=== PATIENT | female | born 1990 | race Caucasian/White ===

== ENCOUNTER 2017-07-12 16:31 | Emergency (ER) | payer BC ==
[2017-07-12 17:19] VITALS: BP 118/78
[2017-07-12] MEDS ORDERED: Acetaminophen TAB* 325 MG PO ONE (17:25)
--- NOTE | 2017-07-12 17:53 | UC ---
FLU HPI - HPI Summary HPI Summary: Pt presents with 3 days progressive body aches, sore throat, cough with yellow sputum, fever. 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 Pt has take OTC APAP and mucinex with mild relief. Pt reports painful swallowing + po No rash Pt's medications reviewed this visit - History of Current Complaint Chief Complaint: UCRespiratory Stated Complaint: FEVER,ACHY,COUGH Time Seen by Provider: 07/12/17 17:22 Hx Obtained From: Patient Hx Last Menstrual Period: 07/07/17 ?: No Onset/Duration: Gradual Onset Severity Currently: Mild Severity Initially: Moderate Pain Intensity: 4 Pain Scale Used: 0-10 Numeric Associated Signs & Symptoms: Positive: Fever, Myalgia, Cough, Sore Throat - Allergy/Home Medications Allergies/Adverse Reactions: Allergies Allergy/AdvReac Type Severity Reaction Status Date / Time latex Allergy Rash Verified 07/12/17 17:20 PMH/Surg Hx/FS Hx/Imm Hx Previously Healthy: Yes Other History Of: Negative For: HIV, Hepatitis B, Hepatitis C, Anticoagulant Therapy - Surgical History Surgical History: None - Family History Known Family History: Positive: Diabetes - Social History Occupation: Employed Full-time Lives: With Family Alcohol Use: Occasionally Substance Use Type: None Smoking Status (MU): Never Smoked Tobacco Have You Smoked in the Last Year: No Review of Systems Constitutional: Fever ENT: Nasal Discharge, Sinus Congestion Respiratory: Cough Neurovascular: Negative Musculoskeletal: Negative Neurological: Negative Psychological: Negative All Other Systems Reviewed And Are Negative: Yes Physical Exam Triage Information Reviewed: Yes Appearance: Well-Nourished, Other: - congested, tired appearing Vital Signs: Initial Vital Signs Temp 99.4 F 07/12/17 17:15 Pulse 105 07/12/17 17:15 Resp 16 07/12/17 17:15 BP 118/78 07/12/17 17:15 Pulse Ox 100 07/12/17 17:15 Vital Signs Reviewed: Yes Eye Exam: Normal Eyes: Positive: Conjunctiva Clear ENT: Positive: Hearing grossly normal, Pharynx normal, Nasal congestion, Other - fluid right ear mild erythema, turbinates inflammed + PND + exudate left tonsil uvula midline Dental Exam: Normal Neck exam: Normal Neck: Positive: 1 Respiratory: Positive: Other: - coarse cough no w/r + BS throughout Cardiovascular Exam: Normal Cardiovascular: Positive: RRR, No Murmur Abdominal Exam: Normal Abdomen Description: Positive: Nontender, No Organomegaly, Soft Musculoskeletal Exam: Normal Neurological Exam: Normal Psychological Exam: Normal Skin Exam: Normal Flu Course/Dx - Course Course Of Treatment: Pt presents with bodyaches, sinus congestion, productive cough, ear pain ad fevers x 3 days. Pt with + fluid in right ear and coarse cough. Flu neg, strep neg. tx supportive. pt trialed lidocaine wit + effect. will Rx lidcoaine. work note. will rx amox - pt will fill and take if sx persist or right ear progresses - Differential Dx/Diagnosis Provider Diagnoses: URI. viral syndrome. pharyngitis Discharge - Sign-Out/Discharge Documenting (check all that apply): Discharge - Discharge Plan Condition: Stable Disposition: HOME Prescriptions: Amoxicillin PO (*) [Amoxicillin 875 MG (*)] 875 mg PO BID #14 tab Benzonatate CAP* [Tessalon 100 MG CAP*] 100 mg PO TID PRN #15 cap PRN Reason: Cough Lidocaine 2% VISCOUS* [Xylocaine 2% Viscous*] 15 ml SWISH SPIT Q4H PRN #150 ml PRN Reason: Sore Throat Patient Education Materials: Viral Syndrome (ED) Forms: *Gen. Provider Communication, *Work Release Referrals: Serene RIOS,Mohan iRley [Primary Care Provider] - Additional Instructions: - Stay well hydrated. Drink plenty of non-alcoholic, non-caffinated beverages. - Alternate ibuprofen (Advil, Motrin) 600mg and Tylenol every 3 hours for pain or fever. Take with food. Do NOT take for more than 4-5 days. - These infections are spread by secretions - do NOT share eating or drinking utensils - clean items you share with other people such as cell phones, computer mouse, TV remote, computer tablets,etc. Once you start to feel better, change your toothbrush and your pillowcase. - get plenty of restful sleep - humidify the air in the room where you sleep - boil water, run a hot steam shower, vaporizer, cups of water by heat register - okay to take over the counter decongestant and cough medication. okay to take medication as prescribed for cough. - frequent sips of cold fluids will be soothing to your throat (popsicles, jello , ice cream, ice water). - get plenty of restful sleep. - if your symptoms persist, okay to start antibiotics as prescribe - contact your doctor or return with questions or concerns - Billing Disposition and Condition Condition: STABLE Disposition: HOME
[2017-07-12] MEDS ORDERED: Lidocaine 2% VISCOUS* 15 ML UDC PO ONE (18:05)
== END 2017-07-12 18:34 | disposition home or self-care (01) ==
LOC: UCCORT 16:31
DX: J06.9 Acute upper respiratory infection, unspecified (principal); B34.9 Viral infection, unspecified; J02.9 Acute pharyngitis, unspecified
CPT/HCPCS: 87502; 87651; 99212; A9270-GY; G0463

== ENCOUNTER 2018-05-04 10:13 | Emergency (ER) | payer BC ==
[2018-05-04 10:44] VITALS: BP 105/70
[2018-05-04 10:44] LABS: Influenza A Molecular POSITIVE (Negative)
--- NOTE | 2018-05-04 10:48 | UC ---
FLU HPI - HPI Summary HPI Summary: Pt presents with c/o sudden onset of POLO< generalized Malaise, fever, chills, X 3 days. Pt states she has a "syncopal conditions" Pt had 2-3 near syncopal episodes during triage and PE. - History of Current Complaint Chief Complaint: UCGeneralIllness Stated Complaint: COUGH/POLO/FEVER/ACHY/CHILLS Time Seen by Provider: 05/04/18 10:30 Hx Obtained From: Patient Hx Last Menstrual Period: 04/25/17 ?: No Onset/Duration: Sudden Onset, Lasting Days, Still Present Severity Currently: Mild Severity Initially: Moderate Pain Intensity: 6 Associated Signs & Symptoms: Positive: Fever, Myalgia, Cough, Nasal Congestion, Headache Related Hx: Possible Flu/Infectious Exposure - Risk Factors Influenza Risk Factors: Negative - Allergy/Home Medications Allergies/Adverse Reactions: Allergies Allergy/AdvReac Type Severity Reaction Status Date / Time latex Allergy Rash Verified 05/04/18 10:30 PMH/Surg Hx/FS Hx/Imm Hx Previously Healthy: Yes Other History Of: Negative For: HIV, Hepatitis B, Hepatitis C, Anticoagulant Therapy - Surgical History Surgical History: None - Family History Known Family History: Positive: Diabetes - Social History Occupation: Employed Full-time Lives: With Family Alcohol Use: Occasionally Substance Use Type: None Smoking Status (MU): Never Smoked Tobacco Have You Smoked in the Last Year: No - Immunization History Vaccination Up to Date: No Review of Systems All Other Systems Reviewed And Are Negative: Yes Constitutional: Positive: Fever, Chills, Fatigue Skin: Positive: Negative Eyes: Positive: Negative ENT: Positive: Sore Throat, Sinus Congestion Respiratory: Positive: Cough Cardiovascular: Positive: Negative Gastrointestinal: Positive: Negative Genitourinary: Positive: Negative Motor: Positive: Negative Neurovascular: Positive: Negative Musculoskeletal: Positive: Myalgia Neurological: Positive: Headache Psychological: Positive: Negative Is Patient Immunocompromised?: No Physical Exam Triage Information Reviewed: Yes Appearance: Ill-Appearing Vital Signs: Initial Vital Signs Temp 98.7 F 05/04/18 10:25 Pulse 83 05/04/18 10:25 Resp 16 05/04/18 10:25 BP 98/54 05/04/18 10:25 Pulse Ox 99 05/04/18 10:25 Vital Signs Reviewed: Yes Eye Exam: Normal ENT: Positive: Nasal congestion, Sinus tenderness Dental Exam: Normal Neck exam: Normal Respiratory Exam: Normal Cardiovascular Exam: Normal Musculoskeletal Exam: Normal Neurological Exam: Normal Psychological Exam: Normal Skin Exam: Normal Diagnostics - Laboratory Diagnostic Studies Completed/Ordered: rapid flu positive Flu Course/Dx - Differential Dx/Diagnosis Differential Diagnosis/HQI/PQRI: Influenza Provider Diagnosis: Influenza Discharge - Sign-Out/Discharge Documenting (check all that apply): Patient Departure All imaging exams completed and their final reports reviewed: No Studies - Discharge Plan Condition: Stable Disposition: HOME Patient Education Materials: Influenza (ED) Forms: *Work Release Referrals: [facility] [Outside] - If Needed No Primary Care Phys,NOPCP [Primary Care Provider] - - Billing Disposition and Condition Condition: STABLE Disposition: Home - Attestation Statements Provider Attestation: I was available for consult. This patient was seen by the AILEEN. The patient was not presented to, seen by, or examined by me. -Sebastien
== END 2018-05-04 10:54 | disposition home or self-care (01) ==
LOC: UCCORT 10:13
DX: J11.1 Influenza due to unidentified influenza virus with other respiratory manifestations (principal); R55 Syncope and collapse; Z91.040 Latex allergy status
CPT/HCPCS: 99211; G0463

== ENCOUNTER 2018-06-24 10:06 | Emergency (ER) | payer BC ==
[2018-06-24 10:17] VITALS: BP 126/77
--- NOTE | 2018-06-24 10:31 | UC ---
General HPI - HPI Summary HPI Summary: slipped on ice and fell striking her R foot on her car this am. c/o pain/swelling to top of R foot. - History of Current Complaint Chief Complaint: UCLowerExtremity Stated Complaint: RIGHT FOOT INJURY Time Seen by Provider: 06/24/18 10:13 Hx Obtained From: Patient Hx Last Menstrual Period: 05/26/18 Onset/Duration: Sudden Onset Timing: Constant Pain Intensity: 5 Associated Signs & Symptoms: Positive: Edema. Negative: Fever - Allergy/Home Medications Allergies/Adverse Reactions: Allergies Allergy/AdvReac Type Severity Reaction Status Date / Time latex Allergy Rash Verified 06/24/18 10:14 Home Medications: Home Medications Oral Contraceptive 1 tab PO DAILY 06/24/18 [History Confirmed 06/24/18] PMH/Surg Hx/FS Hx/Imm Hx Previously Healthy: Yes Other History Of: Negative For: HIV, Hepatitis B, Hepatitis C, Anticoagulant Therapy - Surgical History Surgical History: None - Family History Known Family History: Positive: Diabetes - Social History Alcohol Use: Occasionally Substance Use Type: None Smoking Status (MU): Never Smoked Tobacco Have You Smoked in the Last Year: No - Immunization History Vaccination Up to Date: No Review of Systems All Other Systems Reviewed And Are Negative: Yes Musculoskeletal: Positive: Edema - R foot Physical Exam Triage Information Reviewed: Yes Appearance: Well-Appearing Vital Signs: Initial Vital Signs Temp 98.1 F 06/24/18 10:14 Pulse 67 06/24/18 10:14 Resp 16 06/24/18 10:14 BP 126/77 06/24/18 10:14 Pulse Ox 100 06/24/18 10:14 Vital Signs Reviewed: Yes Eyes: Positive: Conjunctiva Clear ENT: Positive: Normal ENT inspection Respiratory: Positive: Lungs clear Cardiovascular: Positive: RRR Abdomen Description: Positive: Nontender Bowel Sounds: Positive: Present Musculoskeletal: Positive: Other: - R foot: dorsal swelling and tenderness. s/v/ m is intact rest of RLE is unremarkable. Neurological: Positive: Alert Psychological: Positive: Age Appropriate Behavior Skin Exam: Normal Diagnostics - Radiology No standard instances Radiology Interpretation Completed By: Radiologist - R foot=IMPRESSION: NO ACUTE OSSEOUS INJURY. IF SYMPTOMS PERSIST, RECOMMEND REPEAT IMAGING. Course/Dx - Course Course Of Treatment: pt declined any splinting - Diagnoses Provider Diagnosis: Contusion of right foot Discharge - Sign-Out/Discharge Documenting (check all that apply): Patient Departure All imaging exams completed and their final reports reviewed: Yes - Discharge Plan Condition: Stable Disposition: HOME Patient Education Materials: Foot Contusion (ED) Referrals: Mich Villa MD [Medical Doctor] - Additional Instructions: FOLLOW UP DR VILLA, ORTHOPEDICS IF NOT BETTER IN 5 DAYS OR SOONER IF WORSE. - Billing Disposition and Condition Condition: STABLE Disposition: Home
== END 2018-06-24 11:02 | disposition home or self-care (01) ==
LOC: UCCORT 10:06
DX: S90.31XA Contusion of right foot, initial encounter (principal); W18.49XA Other slipping, tripping and stumbling without falling, initial encounter; W22.8XXA Striking against or struck by other objects, initial encounter; Y92.9 Unspecified place or not applicable
CPT/HCPCS: 99211; G0463

== ENCOUNTER 2019-05-23 15:35 | Emergency (ER) | payer BC ==
[2019-05-23 16:27] VITALS: BP 120/77
--- NOTE | 2019-05-23 16:56 | UC ---
Skin Complaint HPI - HPI Summary HPI Summary: 29 yo female presents with rash to right arm. She tells me that for the last month she has had a red itchy rash to her right forearm. Has tried applying calamine lotion with no change. 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 Denies fever, chills, flu like symptoms, or change in perfumes/clothes/environment. - History of Current Complaint Chief Complaint: UCSkin Time Seen by Provider: 05/23/19 16:56 Stated Complaint: RASH Hx Obtained From: Patient Hx Last Menstrual Period: "about 3 weeks ago" Onset/Duration: Gradual Onset Current Severity: None Pain Intensity: 0 - Allergy/Home Medications Allergies/Adverse Reactions: Allergies Allergy/AdvReac Type Severity Reaction Status Date / Time latex Allergy Rash Verified 05/23/19 16:23 Home Medications: Home Medications Ethinyl Estradiol/Drospirenone [Lesa 3 mg-0.02 mg Tablet] 1 tab DAILY 05/23/19 [History Confirmed 05/23/19] PMH/Surg Hx/FS Hx/Imm Hx - Additional Past Medical History Additional PMH: None Other History Of: Negative For: HIV, Hepatitis B, Hepatitis C, Anticoagulant Therapy - Surgical History Surgical History: None - Family History Known Family History: Positive: Diabetes - Social History Occupation: Employed Full-time Lives: With Family Alcohol Use: Occasionally Substance Use Type: None Smoking Status (MU): Never Smoked Tobacco Have You Smoked in the Last Year: No - Immunization History Vaccination Up to Date: No Review of Systems All Other Systems Reviewed And Are Negative: No Constitutional: Positive: Negative Skin: Positive: Rash Eyes: Positive: Negative ENT: Positive: Negative Respiratory: Positive: Negative Cardiovascular: Positive: Negative Neurovascular: Positive: Negative Neurological/Mental Status: Positive: Negative Psychological: Positive: Negative Physical Exam - Summary Physical Exam Summary: GENERAL: NAD. WDWN. No pain distress. SKIN: RIGHT FOREARM: volar aspect with scattered scaley erythematous rash. Flat. NTTP. No warmth, open sores, or drainage. Linear and dry appearing. NECK: Supple. Nontender. No lymphadenopathy. CHEST: No accessory muscle use. Breathing comfortably and in no distress. CV: Pulses intact. Cap refill <2seconds NEURO: Alert. PSYCH: Age appropriate behavior. Triage Information Reviewed: Yes Vital Signs: Initial Vital Signs Temp 97.8 F 05/23/19 16:23 Pulse 73 05/23/19 16:23 Resp 16 05/23/19 16:23 BP 120/77 05/23/19 16:23 Pulse Ox 100 05/23/19 16:23 Vital Signs Reviewed: Yes Course/Dx - Course Course Of Treatment: Rash appears consistent with eczema vs tinea. Will treat as tinea as rash has not spread and was not responsive to lotions. Rx for clotrimazole and if this does not improve within 1 week to try kenalog cream. - Diagnoses Provider Diagnosis: Tinea Discharge ED - Sign-Out/Discharge Documenting (check all that apply): Patient Departure All imaging exams completed and their final reports reviewed: No Studies - Discharge Plan Condition: Stable Disposition: HOME Prescriptions: Clotrimazole 1% CREAM* [Clotrimazole 1%*] 1 applic TOPICAL BID #1 tube Triamcinolone 0.1% CREAM (NF) [Kenalog 0.1% Cream (NF)] 1 applic TOPICAL BID #1 tube Patient Education Materials: Tinea Corporis (ED), Dyshidrotic Eczema (ED) Referrals: No Primary Care Phys,NOPCP [Primary Care Provider] - Additional Instructions: If you develop a fever, shortness of breath, chest pain, new or worsening symptoms - please call your PCP or go to the ED immediately. The rash seems most consistent with a tinea (fungal) infection. Try the CLOTRIMAZOLE cream twice a day for 1 week and if the rash improves - continue to use this for 3 weeks total. If no change within 1 week - switch to the KENALOG steroid cream. - Billing Disposition and Condition Condition: STABLE Disposition: Home
== END 2019-05-23 17:20 | disposition home or self-care (01) ==
LOC: UCCORT 15:35
DX: B35.9 Dermatophytosis, unspecified (principal); Z91.040 Latex allergy status
CPT/HCPCS: 99212; G0463

== ENCOUNTER 2019-06-05 16:12 | Emergency (ER) | payer BC ==
[2019-06-05 17:06] VITALS: BP 112/78
[2019-06-05 17:24] LABS: Influenza A Molecular Negative (Negative); Influenza B Molecular Negative (Negative)
--- NOTE | 2019-06-05 17:52 | UC ---
FLU HPI - HPI Summary HPI Summary: 29yo female presenting with body aches, nausea, chills, and sore throat since this morning. Denies cough and nasal congestion. Denies known fevers. Denies vomiting and diarrhea. Taking otc cold medication for symptom relief. States was diagnosed yesterday with influenza and has same symptoms. - History of Current Complaint Chief Complaint: UCGeneralIllness Stated Complaint: HEADACHE/FATIGUE/SORE THROA/LIGHT HEADED Hx Obtained From: Patient Hx Last Menstrual Period: 05/13/19 Pain Intensity: 2 Pain Scale Used: 0-10 Numeric - Allergy/Home Medications Allergies/Adverse Reactions: Allergies Allergy/AdvReac Type Severity Reaction Status Date / Time latex Allergy Rash Verified 06/05/19 17:02 Home Medications: Home Medications Clotrimazole 1% CREAM* [Clotrimazole 1%*] 1 applic TOPICAL BID #1 tube 05/23/19 [Rx Confirmed 06/05/19] Ethinyl Estradiol/Drospirenone [Lesa 3 mg-0.02 mg Tablet] 1 tab DAILY 05/23/19 [History Confirmed 06/05/19] Triamcinolone 0.1% CREAM (NF) [Kenalog 0.1% Cream (NF)] 1 applic TOPICAL BID #1 tube 05/23/19 [Rx Confirmed 06/05/19] Oseltamivir CAP* [Tamiflu CAP*] 75 mg PO BID #10 cap 06/05/19 [Rx] PMH/Surg Hx/FS Hx/Imm Hx Other History Of: Negative For: HIV, Hepatitis B, Hepatitis C, Anticoagulant Therapy - Surgical History Surgical History: None - Family History Known Family History: Positive: Diabetes - Social History Alcohol Use: Occasionally Substance Use Type: None Smoking Status (MU): Never Smoked Tobacco Have You Smoked in the Last Year: No - Immunization History Vaccination Up to Date: No Review of Systems All Other Systems Reviewed And Are Negative: Yes Constitutional: Positive: Chills, Fatigue ENT: Positive: Sore Throat Respiratory: Positive: Negative Cardiovascular: Positive: Negative Gastrointestinal: Positive: Nausea. Negative: Abdominal Pain, Vomiting, Diarrhea Musculoskeletal: Positive: Myalgia Neurological/Mental Status: Positive: Negative Physical Exam - Summary Physical Exam Summary: Vital Signs Reviewed: Yes A+Ox3, no distress Eyes: Conjunctiva Clear ENT: Hearing grossly normal, TM x 2 clear, moist, uvula midline, no exudate, + pharyngeal erythema Neck: Positive: Supple Respiratory: Positive: No respiratory distress, No accessory muscle use + CTA throughout no w/r Cardiovascular: RRR nl s1, s2 no m/r Musculoskeletal Exam: HOLLAND x 4 without difficulty Neurological: Positive: Alert Psychological: Positive: age appropriate behavior Skin: Positive: no rash, no ecchymosis Vital Signs: Initial Vital Signs Temp 98.6 F 06/05/19 17:02 Pulse 87 06/05/19 17:02 Resp 14 06/05/19 17:02 BP 112/78 06/05/19 17:02 Pulse Ox 99 06/05/19 17:02 Lab Results 06/05/19 Range/Units 17:13 Influenza A (Rapid) Negative (Negative) Influenza B (Rapid) Negative (Negative) Flu Course/Dx - Course Course Of Treatment: Negative rapid flu. Discussed viral illness patient is an symptomatic treatment. Patient states she would prefer to take Tamiflu at this time based on exposure to flu. I prescribed Tamiflu to the patient and instructed to follow up with PCP with [facility] with any new or worsening symptoms. Patient voiced understanding and agreed with the treatment plan. - Differential Dx/Diagnosis Differential Diagnosis/HQI/PQRI: Influenza, Upper Respiratory Infection Provider Diagnosis: Flu-like symptoms Discharge ED - Sign-Out/Discharge Documenting (check all that apply): Patient Departure All imaging exams completed and their final reports reviewed: No Studies - Discharge Plan Condition: Stable Disposition: HOME Prescriptions: Oseltamivir CAP* [Tamiflu CAP*] 75 mg PO BID #10 cap Patient Education Materials: Viral Syndrome (ED) Referrals: [facility] [Outside] - If Needed Additional Instructions: As discussed, you tested negative for influenza today, but will be treated based on symptoms and exposure to the flu. Take tamiflu as prescribed. You may continue with over the counter cold and flu medication as directed for symptom relief. Get plenty of rest and increase your fluid intake. Follow up with your primary care provider or the [facility] with any new or worsening symptoms. - Billing Disposition and Condition Condition: STABLE Disposition: Home - Attestation Statements Provider Attestation: I was available for consult. This patient was seen by the AILEEN. The patient was not presented to, seen by, or examined by me. -Sebastien
== END 2019-06-05 18:13 | disposition home or self-care (01) ==
LOC: UCCORT 16:12
DX: R51 Headache (principal); R53.83 Other fatigue; J02.9 Acute pharyngitis, unspecified; R42 Dizziness and giddiness; M79.10 Myalgia, unspecified site; R68.83 Chills (without fever); R11.0 Nausea; Z91.040 Latex allergy status
CPT/HCPCS: 99212; G0463